=== PATIENT | female | born 1960 | race Asian ===

== ENCOUNTER 2023-05-06 06:05 | Inpatient (IN) | payer OTHER ==
[2023-05-06] VITALS: BP_SYST 100; PULSE 124; RESP 25; TEMP 97; O2SAT 100
[~2023-05-06] VITALS: Ht 152.4 cm; Wt 42.8 kg
[~2023-05-06 06:05] MED LIST: BENZ1TAB82 PO; COLL100 PO; CYCL25CA2 PO; FLUC200T PO; LIP10 PO; METO-442 PO; MULT-518 PO; MYFORTIC; PRED5TAB PO; RANI-673 PO; RISP0.5T66 PO; RISP1TAB44 PO; SULF1TAB47 PO; VALG450T PO; [UNRECOGNIZED DRUG - CODE] PO
[2023-05-06 06:07] VITALS: BP_SYST 58; PULSE 96; RESP 40; TEMP 93; TEMP 95; O2SAT 92
[2023-05-06] MEDS ORDERED: NS 1000 ML IV.SOLN IV ONE (06:15)
[2023-05-06 06:25] LABS: ABG O2 SAT% ESTIMATE 98.8 % (94.0-100.0); BLOOD GAS BASE EXCESS -22.9 mmol/L (-3.0-3.0); BLOOD GAS PO2 181.7 mmHg (75.0-100.0)
[2023-05-06] MEDS ORDERED: CEFEPIME 2 GM in D5W 100 ML IV ONE (06:30)
[2023-05-06 06:34] LABS: BLOOD GAS PCO2 12.6 mmHg (35.0-45.0)
[2023-05-06] MEDS ORDERED: CEFEPIME 2 GM/VIAL (MAXIPIME) ONE (06:37)
[2023-05-06 06:45] LABS: BASOPHILS % (AUTO) 0.1 % (0.0-2.0); HEMATOCRIT 34.4 % (36-48); HEMOGLOBIN 10.5 g/dL (12.0-16.0); LYMPHOCYTES % (AUTO) 3.8 % (20.5-51.5); MEAN CORPUSCULAR HEMOGLOBIN 26 pg (27-31); MEAN CORPUSCULAR HGB CONC 31 % (32-36); MEAN CORPUSCULAR VOLUME 86 fL (79.0-98.0); MONOCYTES # (AUTO) 1.6 K/uL (0.0-1.0); MONOCYTES % (AUTO) 6.4 % (1.7-9.3); NEUTROPHILS % (AUTO) 89.7 % (40.0-70.0); PLATELET COUNT (AUTO) 445 K/uL (130-430); RED BLOOD CELL COUNT(AUTO) 3.98 MIL/uL (4.2-6.2); RED CELL DISTRIBUTION WIDTH 16.3 % (9.0-15.0); WHITE BLOOD COUNT (AUTO) 25.7 K/uL (4.8-10.8)
[2023-05-06 06:58] LABS: BILIRUBIN,URINE NEGATIVE (NEGATIVE); BLOOD, URINE 1+ (NEGATIVE); CLARITY/URINE CLOUDY (CLEAR); COLOR,URINE YELLOW (YELLOW); GLUCOSE,URINE TRACE (NEGATIVE); KETONES,URINE 1+ (NEGATIVE); LEUKOCYTE ESTERASE ,URINE 3+ (NEGATIVE); NITRITE, URINE POSITIVE (NEGATIVE); PROTEIN URINE 2+ (NEGATIVE); UROBILINOGEN,URINE 0.2 (0.2-1.0)
[2023-05-06 07:01] LABS: BACTERIA,URINE MANY /HPF (None Seen); WBC,URINE >100 /HPF (0-3)
[2023-05-06 07:02] LABS: ALANINE AMINOTRANSFERASE 10 U/L (12-78); ALBUMIN 3.2 g/dL (3.4-4.8); ANION GAP 25 (5-15); ASPARTATE AMINOTRANSFERASE 17 U/L (10-37); BILIRUBIN,DIRECT 0.2 mg/dL (0.0-0.3); CHLORIDE 94 mmol/L (98-107); GFR AFRICAN AMERICAN 2 mL/min (>90); GLUCOSE 396 mg/dL (74-106); SODIUM SERUM 125 mmol/L (136-145); TOTAL BILIRUBIN 0.4 mg/dL (0.0-1.0); TOTAL PROTEIN, SERUM 8.6 g/dL (6.4-8.3)
[2023-05-06 07:14] LABS: INFLUENZA TYPE B NEGATIVE (NEGATIVE)
[2023-05-06 07:15] LABS: CARBON DIOXIDE 6 mmol/L (23-29); CREATININE 18.67 mg/dL (0.55-1.30); GFR NON AFRICAN-AMERICAN 2 mL/min (>90); POTASSIUM 6.5 mmol/L (3.5-5.1); UREA NITROGEN, BLOOD 190 mg/dL (8-21)
[2023-05-06] MEDS ORDERED: INSULIN REGULAR, HUMAN 100 UNITS in NS 99 ML IV ONE ×2 (07:15)
[2023-05-06 07:16] LABS: INFLUENZA TYPE A Positive (NEGATIVE)
[2023-05-06 07:44] LABS: INR 1.1 (0.8-1.2); PROTHROMBIN TIME 11.4 SECS (9.5-12.5)
[2023-05-06 08:01] LABS: ACETONE, SERUM NEGATIVE (NEGATIVE)
[2023-05-06] MEDS ORDERED: CALCIUM GLUCONATE 1 GM/10 ML VIAL IVP ONE (08:30)
[2023-05-06] MEDS ORDERED: NACL 0.9% 1,000 ML IV SCH (08:30)
[2023-05-06 08:48] LABS: CALCIUM 8.7 mg/dL (8.4-11.0)
[2023-05-06] MEDS ORDERED: HYDROcodone/ACETAMIN 10-325 MG TAB PO PRN (09:15)
[2023-05-06] MEDS ORDERED: ONDANSETRON HCL 4 MG/2 ML VIAL IVP PRN (09:15)
[2023-05-06] MEDS ORDERED: NS 500 ML IV SCH (09:15)
[2023-05-06] MEDS ORDERED: MORPHINE 2 MG/ML INJ. SYRINGE IVP PRN (09:15)
[2023-05-06] MEDS ORDERED: HYDROcodone/ACETAMIN 5-325 MG TAB (NORCO/ VICODIN) PO PRN (09:15)
[2023-05-06] MEDS ORDERED: INSULIN REGULAR, HUMAN 100 UNITS in NS 99 ML IV PRN ×6 (09:15→15:00)
[2023-05-06] MEDS ORDERED: ACETAMINOPHEN 325 MG TABLET PO PRN (09:15)
[2023-05-06] MEDS ORDERED: DEXTROSE 50% JECT 50 ML DISP.SYRIN IVP PRN (09:15)
[2023-05-06 09:51] LABS: POTASSIUM 6.3 mmol/L (3.5-5.1)
[2023-05-06] MEDS ORDERED: AMLO5TAB92 PO (09:52)
[2023-05-06] MEDS ORDERED: ALEN70TA27 PO (09:52)
[2023-05-06 09:53] LABS: CREATININE 16.43 mg/dL (0.55-1.30)
[2023-05-06 10:08] LABS: CALCIUM 8.8 mg/dL (8.4-11.0); PHOSPHORUS 7.3 mg/dL (2.7-4.5); POTASSIUM 5.4 mmol/L (3.5-5.1)
[2023-05-06 10:11] LABS: CREATININE 15.45 mg/dL (0.55-1.30)
[2023-05-06] MEDS ORDERED: LORazepam 2 MG/ML VIAL IM ONE (11:00)
[2023-05-06] MEDS ORDERED: CALCIUM GLUC 1 GM/100ML-NACL 100 ML IV ONE (11:45)
[2023-05-06] MEDS: D5NS 1,000 ML IV SCH ×2 (12:03→22:55)
[2023-05-06] MEDS ORDERED: CLIN-142 PO (12:38)
[2023-05-06] MEDS ORDERED: CYCL25CA PO (12:38)
[2023-05-06] MEDS ORDERED: MYCO180T3 PO (12:38)
[2023-05-06 12:55] LABS: POTASSIUM 5.3 mmol/L (3.5-5.1)
[2023-05-06 12:59] LABS: CREATININE 15.01 mg/dL (0.55-1.30)
[2023-05-06] MEDS ORDERED: DIPHENHYDRAMINE INJ 50 MG/ML VIAL IVP PRN (13:00)
[2023-05-06] MEDS ORDERED: CALCIUM CHLORIDE 1 GM/10 ML DISP.SYRIN (14 mEq Ca++/SYR) IVP ONE (13:15)
[2023-05-06] MEDS ORDERED: CALCIUM CHLORIDE 1 GM in NS 100 ML IV ONE (15:00)
[2023-05-06 17:45] LABS: CALCIUM 10.5 mg/dL (8.4-11.0); POTASSIUM 5.2 mmol/L (3.5-5.1)
[2023-05-06 17:56] LABS: CREATININE 14.71 mg/dL (0.55-1.30)
[2023-05-06] MEDS ORDERED: HEPARIN SODIUM,PORCINE 5,000 UNITS/ML VIAL ONE (18:51)
[2023-05-06] MEDS ORDERED: HEPARIN SODIUM,PORCINE 5,000 UNITS/ML VIAL SUBCUT ONE (19:00)
[2023-05-06 19:02] LABS: BLOOD GAS PH 7.157 (7.350-7.450)
[2023-05-06 19:03] LABS: BLOOD GAS HCO3 4.4 mmol/L (21.0-27.0); BLOOD GAS PCO2 12.7 mmHg (35.0-45.0); BLOOD GAS PO2 162.8 mmHg (75.0-100.0)
[2023-05-06 19:04] LABS: ABG O2 SAT% ESTIMATE 98.7 % (94.0-100.0); ALLEN'S TEST POSITIVE (P); BLOOD GAS BASE EXCESS -21.7 mmol/L (-3.0-3.0)
[2023-05-06] MEDS ORDERED: NOREPINEPHRINE 4 MG/4 ML VIAL IV ONE (23:55)
[2023-05-07] VITALS (25 sets, daily range): BP systolic 91–153; PULSE 86–126; RESP 11–23; TEMP 97–98.1; O2SAT 97–100
[2023-05-07] MEDS ORDERED: NOREPINEPHRINE BITARTRATE 16 MG in D5W 234 ML IV PRN ×2
[2023-05-07 01:43] LABS: CALCIUM 8.7 mg/dL (8.4-11.0); CREATININE 6.17 mg/dL (0.55-1.30); POTASSIUM 3.2 mmol/L (3.5-5.1)
[2023-05-07 05:25] LABS: EOSINOPHILS % (AUTO) 0.1 % (0.0-4.0); HEMATOCRIT 22.3 % (36-48); LYMPHOCYTES # (AUTO) 0.6 K/uL (1.0-5.5); LYMPHOCYTES % (AUTO) 3.6 % (20.5-51.5); MEAN CORPUSCULAR HEMOGLOBIN 26 pg (27-31); MEAN CORPUSCULAR HGB CONC 32 % (32-36); MEAN CORPUSCULAR VOLUME 81 fL (79.0-98.0); MONOCYTES # (AUTO) 1.5 K/uL (0.0-1.0); NEUTROPHILS # (AUTO) 14.7 K/uL (1.8-7.7); NEUTROPHILS % (AUTO) 87.3 % (40.0-70.0); PLATELET COUNT (AUTO) 282 K/uL (130-430); RED BLOOD CELL COUNT(AUTO) 2.75 MIL/uL (4.2-6.2); RED CELL DISTRIBUTION WIDTH 15.6 % (9.0-15.0); WHITE BLOOD COUNT (AUTO) 16.8 K/uL (4.8-10.8)
[2023-05-07 05:28] LABS: HEMOGLOBIN 7.2 g/dL (12.0-16.0)
[2023-05-07 05:40] LABS: CALCIUM 8.6 mg/dL (8.4-11.0); CREATININE 6.48 mg/dL (0.55-1.30)
[2023-05-07] MEDS: D5NS 1,000 ML IV SCH ×2 (08:55→17:53)
[2023-05-07] MEDS ORDERED: D5W IV SCH (09:00)
[2023-05-07] MEDS ORDERED: CEFEPIME IV SCH (09:00)
[2023-05-07] MEDS ORDERED: KCL 20 mEq in 100 mL (PREMIX) 100 ML IV ONE ×2 (09:30→12:00)
[2023-05-07 09:58] LABS: ALBUMIN 1.9 g/dL (3.4-4.8); CALCIUM 8.9 mg/dL (8.4-11.0); CREATININE 6.58 mg/dL (0.55-1.30); POTASSIUM 3.2 mmol/L (3.5-5.1); TOTAL BILIRUBIN 0.4 mg/dL (0.0-1.0); TOTAL PROTEIN, SERUM 5.5 g/dL (6.4-8.3)
[2023-05-07] MEDS: CEFEPIME 0.5 GM in D5W 50 ML IV SCH (13:34)
[2023-05-07] MEDS ORDERED: HYDROcodone/ACETAMIN 5-325 MG TAB (NORCO/ VICODIN) PO PRN (14:00)
[2023-05-07 15:35] LABS: CALCIUM 8.4 mg/dL (8.4-11.0); CREATININE 3.94 mg/dL (0.55-1.30); POTASSIUM 3.8 mmol/L (3.5-5.1)
[2023-05-07] MEDS ORDERED: HEPARIN SODIUM,PORCINE 5,000 UNITS/ML VIAL MC ONE (15:45)
[2023-05-07 19:05] LABS: ABG O2 SAT% ESTIMATE 99.3 % (94.0-100.0); BLOOD GAS BASE EXCESS 6.9 mmol/L (-3.0-3.0); BLOOD GAS HCO3 27.1 mmol/L (21.0-27.0); BLOOD GAS PCO2 26.8 mmHg (35.0-45.0); BLOOD GAS PH 7.622 (7.350-7.450); BLOOD GAS PO2 156.6 mmHg (75.0-100.0)
[2023-05-07 19:46] LABS: MEAN CORPUSCULAR HEMOGLOBIN 27 pg (27-31); MEAN CORPUSCULAR HGB CONC 32 % (32-36); MEAN CORPUSCULAR VOLUME 82 fL (79.0-98.0); PLATELET COUNT (AUTO) 232 K/uL (130-430); RED BLOOD CELL COUNT(AUTO) 2.54 MIL/uL (4.2-6.2); RED CELL DISTRIBUTION WIDTH 15.6 % (9.0-15.0); WHITE BLOOD COUNT (AUTO) 20.1 K/uL (4.8-10.8)
[2023-05-07 20:05] LABS: HEMATOCRIT 20.8 % (36-48); HEMOGLOBIN 6.7 g/dL (12.0-16.0)
[2023-05-07] MEDS ORDERED: FUROSEMIDE 20 MG/2 ML VIAL IVP ONE (21:45)
[2023-05-07 21:59] LABS: BAND % (MANUAL) 7 % (0-6); BASOPHILS % (MANUAL) 0 % (0-2); EOSINOPHILS % (MANUAL) 0 % (0-7); LYMPHOCYTES % (MANUAL) 5 % (20-46); MONOCYTES % (MANUAL) 3 % (0-11); PLATELET ESTIMATE ADEQUATE (ADEQUATE)
[2023-05-07 22:00] LABS: ANISOCYTOSIS 1+; OVALOCYTES MODERATE
[2023-05-07] MEDS ORDERED: *TPN PER PHARMACY XX SCH (22:30)
[2023-05-08] VITALS (24 sets, daily range): BP systolic 96–167; PULSE 68–104; RESP 11–25; TEMP 97.6–98.3; O2SAT 98–100
[2023-05-08] MEDS ORDERED: PANTOPRAZOLE SODIUM 40 MG/VIAL (PROTONIX) ONE (00:07)
[2023-05-08] MEDS: PANTOPRAZOLE SODIUM 40 MG/VIAL (PROTONIX) IVP SCH ×3 (00:08→21:42)
[2023-05-08] MEDS: OSELTAMIVIR PHOSPHATE 30 MG CAPSULE PO SCH ×3 (00:30→21:43)
[2023-05-08] MEDS: D5NS 1,000 ML IV SCH ×2 (04:19→18:24)
[2023-05-08 05:40] LABS: EOSINOPHILS % (AUTO) 0.2 % (0.0-4.0); HEMATOCRIT 26.6 % (36-48); HEMOGLOBIN 8.7 g/dL (12.0-16.0); LYMPHOCYTES % (AUTO) 6.7 % (20.5-51.5); MEAN CORPUSCULAR HEMOGLOBIN 28 pg (27-31); MEAN CORPUSCULAR HGB CONC 33 % (32-36); MEAN CORPUSCULAR VOLUME 85 fL (79.0-98.0); MONOCYTES # (AUTO) 1.5 K/uL (0.0-1.0); MONOCYTES % (AUTO) 9.8 % (1.7-9.3); NEUTROPHILS # (AUTO) 12.7 K/uL (1.8-7.7); NEUTROPHILS % (AUTO) 83.3 % (40.0-70.0); PLATELET COUNT (AUTO) 199 K/uL (130-430); RED BLOOD CELL COUNT(AUTO) 3.12 MIL/uL (4.2-6.2); RED CELL DISTRIBUTION WIDTH 15.9 % (9.0-15.0); WHITE BLOOD COUNT (AUTO) 15.2 K/uL (4.8-10.8)
[2023-05-08 05:48] LABS: CALCIUM 8.3 mg/dL (8.4-11.0); CREATININE 2.88 mg/dL (0.55-1.30); POTASSIUM 3.3 mmol/L (3.5-5.1)
[2023-05-08] MEDS ORDERED: KCL 40 mEq in 100 mL (PREMIX) 100 ML IV ONE (09:00)
[2023-05-08] MEDS: CEFEPIME 0.5 GM in D5W 50 ML IV SCH (11:53)
[2023-05-08] MEDS ORDERED: MYCOPHENOLATE SODIUM PO SCH (18:45)
[2023-05-08] MEDS ORDERED: MULTIVITAMINS PO SCH (18:45)
[2023-05-08 18:46] LABS: HEMATOCRIT 32.3 % (36-48); HEMOGLOBIN 10.2 g/dL (12.0-16.0)
[2023-05-08] MEDS ORDERED: MULTIVITAMINS TAB 1 TABLET PO ONE (19:00)
[2023-05-08] MEDS ORDERED: predniSONE 5 MG TABLET PO ONE (19:00)
[2023-05-08] MEDS ORDERED: POTASSIUM ACETATE IV SCH ×7 (21:00)
[2023-05-08] MEDS ORDERED: SODIUM ACETATE IV SCH ×7 (21:00)
[2023-05-08] MEDS: MYCOPHENOLATE 180 MG PO SCH (21:00)
[2023-05-08] MEDS ORDERED: MVI IV SCH ×7 (21:00)
[2023-05-08] MEDS ORDERED: TPN CENTRAL IV SCH ×7 (21:00)
[2023-05-08] MEDS ORDERED: [UNRECOGNIZED DRUG - OTHER] IV SCH ×7 (21:00)
[2023-05-09] VITALS (18 sets, daily range): BP systolic 119–178; PULSE 71–106; RESP 10–25; TEMP 97.8–98.9; O2SAT 96–100
[2023-05-09 05:04] LABS: BASOPHILS % (AUTO) 0.1 % (0.0-2.0); EOSINOPHILS # (AUTO) 0.4 K/uL (0.0-0.4); EOSINOPHILS % (AUTO) 3.5 % (0.0-4.0); HEMATOCRIT 27.6 % (36-48); HEMOGLOBIN 8.8 g/dL (12.0-16.0); LYMPHOCYTES # (AUTO) 0.8 K/uL (1.0-5.5); LYMPHOCYTES % (AUTO) 7.7 % (20.5-51.5); MEAN CORPUSCULAR HEMOGLOBIN 28 pg (27-31); MEAN CORPUSCULAR HGB CONC 32 % (32-36); MEAN CORPUSCULAR VOLUME 88 fL (79.0-98.0); MONOCYTES # (AUTO) 1.1 K/uL (0.0-1.0); MONOCYTES % (AUTO) 10.4 % (1.7-9.3); NEUTROPHILS # (AUTO) 8.4 K/uL (1.8-7.7); NEUTROPHILS % (AUTO) 78.3 % (40.0-70.0); PLATELET COUNT (AUTO) 167 K/uL (130-430); RED BLOOD CELL COUNT(AUTO) 3.13 MIL/uL (4.2-6.2); RED CELL DISTRIBUTION WIDTH 15.6 % (9.0-15.0); WHITE BLOOD COUNT (AUTO) 10.7 K/uL (4.8-10.8)
[2023-05-09 05:27] LABS: ALBUMIN 1.6 g/dL (3.4-4.8); CALCIUM 8.5 mg/dL (8.4-11.0); CREATININE 3.68 mg/dL (0.55-1.30); PHOSPHORUS 3.1 mg/dL (2.7-4.5); POTASSIUM 3.4 mmol/L (3.5-5.1); TOTAL BILIRUBIN 0.3 mg/dL (0.0-1.0)
[2023-05-09] MEDS: MULTIVITAMINS TAB 1 TABLET PO SCH (08:11)
[2023-05-09] MEDS: predniSONE 5 MG TABLET PO SCH (08:11)
[2023-05-09] MEDS: PANTOPRAZOLE SODIUM 40 MG/VIAL (PROTONIX) IVP SCH ×2 (08:11→20:32)
[2023-05-09] MEDS: OSELTAMIVIR PHOSPHATE 30 MG CAPSULE PO SCH ×2 (08:11→20:33)
[2023-05-09] MEDS: MYCOPHENOLATE 180 MG PO SCH ×2 (09:00→20:34)
[2023-05-09] MEDS: D5NS 1,000 ML IV SCH ×3 (10:00→23:56)
[2023-05-09] MEDS: CEFEPIME 0.5 GM in D5W 50 ML IV SCH (12:54)
[2023-05-09] MEDS: INSULIN LISPRO SLIDING SCALE 100 UNITS/ML, 3 ML VIAL (humaLOG) SUBCUT PRN ×2 (19:03→23:58)
[2023-05-09] MEDS: NYSTATIN 15 GM TOPICAL POWDER TP SCH (20:34)
[2023-05-09] MEDS ORDERED: TPN CENTRAL IV SCH ×9 (21:00)
[2023-05-09] MEDS ORDERED: K PHOS IV SCH ×9 (21:00)
[2023-05-09] MEDS ORDERED: [UNRECOGNIZED DRUG - OTHER] IV SCH ×9 (21:00)
[2023-05-09] MEDS ORDERED: SODIUM ACETATE IV SCH ×9 (21:00)
[2023-05-09] MEDS ORDERED: D5NS 1,000 ML IV SCH (21:00)
[2023-05-09] MEDS ORDERED: POTASSIUM ACETATE IV SCH ×9 (21:00)
[2023-05-10] VITALS: BP_SYST 123; PULSE 62; RESP 18; TEMP 98.7; O2SAT 99
[2023-05-10] MEDS: INSULIN LISPRO SLIDING SCALE 100 UNITS/ML, 3 ML VIAL (humaLOG) SUBCUT PRN ×3 (05:33→19:12)
[2023-05-10 05:49] LABS: CALCIUM 8.3 mg/dL (8.4-11.0); POTASSIUM 3.5 mmol/L (3.5-5.1)
[2023-05-10 05:50] LABS: ALBUMIN 1.7 g/dL (3.4-4.8); BASOPHILS % (AUTO) 0.1 % (0.0-2.0); CREATININE 3.79 mg/dL (0.55-1.30); EOSINOPHILS # (AUTO) 0.3 K/uL (0.0-0.4); EOSINOPHILS % (AUTO) 3.3 % (0.0-4.0); HEMATOCRIT 25.9 % (36-48); HEMOGLOBIN 8.3 g/dL (12.0-16.0); LYMPHOCYTES % (AUTO) 10.7 % (20.5-51.5); MEAN CORPUSCULAR HEMOGLOBIN 28 pg (27-31); MEAN CORPUSCULAR HGB CONC 32 % (32-36); MEAN CORPUSCULAR VOLUME 88 fL (79.0-98.0); MONOCYTES # (AUTO) 1.2 K/uL (0.0-1.0); MONOCYTES % (AUTO) 13.1 % (1.7-9.3); NEUTROPHILS # (AUTO) 6.9 K/uL (1.8-7.7); NEUTROPHILS % (AUTO) 72.8 % (40.0-70.0); PHOSPHORUS 1.6 mg/dL (2.7-4.5); PLATELET COUNT (AUTO) 133 K/uL (130-430); RED BLOOD CELL COUNT(AUTO) 2.95 MIL/uL (4.2-6.2); RED CELL DISTRIBUTION WIDTH 15.8 % (9.0-15.0); TOTAL BILIRUBIN 0.3 mg/dL (0.0-1.0); WHITE BLOOD COUNT (AUTO) 9.5 K/uL (4.8-10.8)
[2023-05-10 07:40] VITALS: BP_SYST 141; PULSE 84; RESP 16; TEMP 98.4; O2SAT 100
[2023-05-10 08:20] VITALS: O2SAT 100
[2023-05-10] MEDS: MYCOPHENOLATE 180 MG PO SCH ×2 (09:00→21:00)
[2023-05-10] MEDS: PANTOPRAZOLE SODIUM 40 MG/VIAL (PROTONIX) IVP SCH ×2 (09:03→22:28)
[2023-05-10] MEDS: MENTHOL/ZINC OXIDE 113 GM OINT. TP PRN (09:04)
[2023-05-10] MEDS: MULTIVITAMINS TAB 1 TABLET PO SCH (09:05)
[2023-05-10] MEDS: OSELTAMIVIR PHOSPHATE 30 MG CAPSULE PO SCH ×2 (09:06→22:29)
[2023-05-10] MEDS: predniSONE 5 MG TABLET PO SCH (09:06)
[2023-05-10] MEDS: NYSTATIN 15 GM TOPICAL POWDER TP SCH ×2 (09:12→22:27)
[2023-05-10] MEDS ORDERED: DEXTROSE 50%-WATER 50 ML DISP.SYRIN IVP PRN (10:30)
[2023-05-10 12:20] VITALS: BP_SYST 148; PULSE 98; RESP 18; TEMP 97.7; O2SAT 100
[2023-05-10] MEDS: metroNIDAZOLE 500 mg/NS 100 ML IV SCH ×2 (14:10→14:41)
[2023-05-10] MEDS: CEFEPIME 0.5 GM in D5W 50 ML IV SCH (14:39)
[2023-05-10] MEDS ORDERED: CIPROFLOXACIN HCL 500 MG TABLET PO ONE (15:15)
[2023-05-10 16:36] VITALS: BP_SYST 160; PULSE 73; RESP 17; TEMP 98.6; O2SAT 97
[2023-05-10 20:00] VITALS: BP_SYST 144; PULSE 77; RESP 18; TEMP 97.9; O2SAT 95
[2023-05-10] MEDS: CIPROFLOXACIN HCL 500 MG TABLET PO SCH (22:28)
[2023-05-11] VITALS: BP_SYST 138; PULSE 72; RESP 18; TEMP 97.8; O2SAT 97
[2023-05-11 08:00] VITALS: BP_SYST 131; PULSE 84; RESP 17; TEMP 98.5; O2SAT 100
[2023-05-11] MEDS: MYCOPHENOLATE 180 MG PO SCH ×2 (09:00→22:03)
[2023-05-11] MEDS: PANTOPRAZOLE SODIUM 40 MG/VIAL (PROTONIX) IVP SCH ×2 (09:59→22:03)
[2023-05-11] MEDS: MULTIVITAMINS TAB 1 TABLET PO SCH (10:00)
[2023-05-11] MEDS: OSELTAMIVIR PHOSPHATE 30 MG CAPSULE PO SCH ×2 (10:00→22:17)
[2023-05-11] MEDS: predniSONE 5 MG TABLET PO SCH (10:00)
[2023-05-11] MEDS: CIPROFLOXACIN HCL 500 MG TABLET PO SCH (10:00)
[2023-05-11] MEDS: NYSTATIN 15 GM TOPICAL POWDER TP SCH ×2 (10:01→22:03)
[2023-05-11 12:32] VITALS: BP_SYST 134; PULSE 78; RESP 18; TEMP 98.2; O2SAT 97
[2023-05-11] MEDS ORDERED: MYCOPHENOLATE 180 MG PO ONE (14:00)
[2023-05-11 16:05] VITALS: BP_SYST 133; PULSE 80; RESP 18; TEMP 98.4; O2SAT 99
[2023-05-11 16:15] LABS: BASOPHILS % (AUTO) 0.1 % (0.0-2.0); EOSINOPHILS # (AUTO) 0.1 K/uL (0.0-0.4); EOSINOPHILS % (AUTO) 0.6 % (0.0-4.0); HEMATOCRIT 27.7 % (36-48); HEMOGLOBIN 8.7 g/dL (12.0-16.0); LYMPHOCYTES # (AUTO) 0.5 K/uL (1.0-5.5); LYMPHOCYTES % (AUTO) 4.4 % (20.5-51.5); MEAN CORPUSCULAR HEMOGLOBIN 28 pg (27-31); MEAN CORPUSCULAR HGB CONC 31 % (32-36); MEAN CORPUSCULAR VOLUME 89 fL (79.0-98.0); MONOCYTES # (AUTO) 0.8 K/uL (0.0-1.0); MONOCYTES % (AUTO) 7.1 % (1.7-9.3); NEUTROPHILS # (AUTO) 10.1 K/uL (1.8-7.7); NEUTROPHILS % (AUTO) 87.8 % (40.0-70.0); PLATELET COUNT (AUTO) 151 K/uL (130-430); RED BLOOD CELL COUNT(AUTO) 3.12 MIL/uL (4.2-6.2); RED CELL DISTRIBUTION WIDTH 15.7 % (9.0-15.0); WHITE BLOOD COUNT (AUTO) 11.5 K/uL (4.8-10.8)
[2023-05-11 16:36] LABS: CALCIUM 8.5 mg/dL (8.4-11.0); CREATININE 4.21 mg/dL (0.55-1.30); POTASSIUM 4.1 mmol/L (3.5-5.1); TOTAL BILIRUBIN 0.3 mg/dL (0.0-1.0); TOTAL PROTEIN, SERUM 5.7 g/dL (6.4-8.3)
[2023-05-11] MEDS ORDERED: levoFLOXacin 500 MG TABLET PO ONE (17:15)
[2023-05-11 20:00] VITALS: BP_SYST 138; PULSE 89; RESP 18; TEMP 99; O2SAT 99
[2023-05-11] MEDS: metroNIDAZOLE 500 MG TABLET PO SCH (22:02)
[2023-05-12] VITALS (8 sets, daily range): BP systolic 125–140; PULSE 84–97; RESP 17–20; TEMP 96.1–99.6; O2SAT 90–100
[2023-05-12] MEDS: metroNIDAZOLE 500 MG TABLET PO SCH ×3 (05:59→21:15)
[2023-05-12 07:54] LABS: BASOPHILS % (AUTO) 0.3 % (0.0-2.0); EOSINOPHILS # (AUTO) 0.3 K/uL (0.0-0.4); EOSINOPHILS % (AUTO) 2.8 % (0.0-4.0); HEMATOCRIT 27.2 % (36-48); HEMOGLOBIN 8.7 g/dL (12.0-16.0); LYMPHOCYTES # (AUTO) 1.1 K/uL (1.0-5.5); MEAN CORPUSCULAR HEMOGLOBIN 28 pg (27-31); MEAN CORPUSCULAR HGB CONC 32 % (32-36); MEAN CORPUSCULAR VOLUME 89 fL (79.0-98.0); MONOCYTES # (AUTO) 1.4 K/uL (0.0-1.0); MONOCYTES % (AUTO) 15.8 % (1.7-9.3); NEUTROPHILS # (AUTO) 6.3 K/uL (1.8-7.7); NEUTROPHILS % (AUTO) 69.1 % (40.0-70.0); PLATELET COUNT (AUTO) 164 K/uL (130-430); RED BLOOD CELL COUNT(AUTO) 3.06 MIL/uL (4.2-6.2); RED CELL DISTRIBUTION WIDTH 15.9 % (9.0-15.0); WHITE BLOOD COUNT (AUTO) 9.1 K/uL (4.8-10.8)
[2023-05-12 07:59] LABS: INR 1.2 (0.8-1.2); PROTHROMBIN TIME 12.3 SECS (9.5-12.5)
[2023-05-12 08:04] LABS: ALBUMIN 1.9 g/dL (3.4-4.8); CALCIUM 8.7 mg/dL (8.4-11.0); CREATININE 4.3 mg/dL (0.55-1.30); POTASSIUM 3.7 mmol/L (3.5-5.1); TOTAL BILIRUBIN 0.3 mg/dL (0.0-1.0); TOTAL PROTEIN, SERUM 5.5 g/dL (6.4-8.3)
[2023-05-12] MEDS ORDERED: SIMETHICONE 40 MG/0.6 ML ML ONE (08:31)
[2023-05-12] MEDS ORDERED: levoFLOXacin 500 MG TABLET PO SCH (10:00)
[2023-05-12] MEDS: MEPERIDINE 100 MG INJ. 100 MG/ML VIAL ONE ×3 (10:07→10:15)
[2023-05-12] MEDS: MIDAZOLAM HCL 5 MG/5 ML VIAL ONE ×3 (10:07→10:15)
[2023-05-12] MEDS: PANTOPRAZOLE SODIUM 40 MG/VIAL (PROTONIX) IVP SCH ×2 (11:22→21:15)
[2023-05-12] MEDS: MULTIVITAMINS TAB 1 TABLET PO SCH (11:22)
[2023-05-12] MEDS: NYSTATIN 15 GM TOPICAL POWDER TP SCH ×2 (11:22→21:19)
[2023-05-12] MEDS: OSELTAMIVIR PHOSPHATE 30 MG CAPSULE PO SCH ×2 (11:23→21:19)
[2023-05-12] MEDS: predniSONE 5 MG TABLET PO SCH (11:23)
[2023-05-12] MEDS: MYCOPHENOLATE 180 MG PO SCH ×2 (11:24→21:17)
[2023-05-13 01:21] VITALS: BP_SYST 138; PULSE 81; RESP 16; TEMP 98.7; O2SAT 69
[2023-05-13] MEDS: metroNIDAZOLE 500 MG TABLET PO SCH ×3 (05:59→21:56)
[2023-05-13 07:07] LABS: CALCIUM 8.6 mg/dL (8.4-11.0); CREATININE 4.56 mg/dL (0.55-1.30); POTASSIUM 3.9 mmol/L (3.5-5.1); TOTAL BILIRUBIN 0.4 mg/dL (0.0-1.0); TOTAL PROTEIN, SERUM 5.6 g/dL (6.4-8.3)
[2023-05-13 07:58] LABS: BASOPHILS % (AUTO) 0.6 % (0.0-2.0); EOSINOPHILS # (AUTO) 0.2 K/uL (0.0-0.4); EOSINOPHILS % (AUTO) 1.8 % (0.0-4.0); HEMATOCRIT 27.1 % (36-48); HEMOGLOBIN 8.7 g/dL (12.0-16.0); LYMPHOCYTES % (AUTO) 11.9 % (20.5-51.5); MEAN CORPUSCULAR HEMOGLOBIN 29 pg (27-31); MEAN CORPUSCULAR HGB CONC 32 % (32-36); MEAN CORPUSCULAR VOLUME 89 fL (79.0-98.0); MONOCYTES # (AUTO) 1.1 K/uL (0.0-1.0); NEUTROPHILS # (AUTO) 6.3 K/uL (1.8-7.7); NEUTROPHILS % (AUTO) 72.7 % (40.0-70.0); PLATELET COUNT (AUTO) 176 K/uL (130-430); RED BLOOD CELL COUNT(AUTO) 3.04 MIL/uL (4.2-6.2); WHITE BLOOD COUNT (AUTO) 8.7 K/uL (4.8-10.8)
[2023-05-13] MEDS: MULTIVITAMINS TAB 1 TABLET PO SCH (09:00)
[2023-05-13] MEDS: MYCOPHENOLATE 180 MG PO SCH ×2 (09:00→21:57)
[2023-05-13] MEDS: predniSONE 5 MG TABLET PO SCH (09:00)
[2023-05-13] MEDS: PANTOPRAZOLE SODIUM 40 MG/VIAL (PROTONIX) IVP SCH ×2 (09:29→21:56)
[2023-05-13] MEDS: NYSTATIN 15 GM TOPICAL POWDER TP SCH ×2 (09:29→21:58)
[2023-05-13] MEDS: levoFLOXacin 250 MG TABLET PO SCH (10:00)
[2023-05-13 11:30] VITALS: BP_SYST 135; PULSE 91; RESP 17; TEMP 98.8; O2SAT 100
[2023-05-13 13:30] VITALS: BP_SYST 144; PULSE 93; RESP 20; TEMP 98.7; O2SAT 99
[2023-05-13 16:46] VITALS: BP_SYST 135; PULSE 85; RESP 17; TEMP 98.1; O2SAT 98
[2023-05-13 20:30] VITALS: BP_SYST 136; PULSE 89; RESP 18; TEMP 97.5; O2SAT 96
[2023-05-14] VITALS: O2SAT 96
[2023-05-14 01:00] VITALS: BP_SYST 138; PULSE 93; RESP 18; TEMP 98.2; O2SAT 96
[2023-05-14 06:38] LABS: BASOPHILS % (AUTO) 0.7 % (0.0-2.0); EOSINOPHILS # (AUTO) 0.5 K/uL (0.0-0.4); EOSINOPHILS % (AUTO) 6.8 % (0.0-4.0); HEMOGLOBIN 9.6 g/dL (12.0-16.0); LYMPHOCYTES # (AUTO) 1.1 K/uL (1.0-5.5); LYMPHOCYTES % (AUTO) 15.1 % (20.5-51.5); MEAN CORPUSCULAR HEMOGLOBIN 28 pg (27-31); MEAN CORPUSCULAR HGB CONC 31 % (32-36); MEAN CORPUSCULAR VOLUME 90 fL (79.0-98.0); MONOCYTES # (AUTO) 0.9 K/uL (0.0-1.0); MONOCYTES % (AUTO) 12.9 % (1.7-9.3); NEUTROPHILS # (AUTO) 4.7 K/uL (1.8-7.7); NEUTROPHILS % (AUTO) 64.5 % (40.0-70.0); PLATELET COUNT (AUTO) 211 K/uL (130-430); RED BLOOD CELL COUNT(AUTO) 3.45 MIL/uL (4.2-6.2); RED CELL DISTRIBUTION WIDTH 15.8 % (9.0-15.0); WHITE BLOOD COUNT (AUTO) 7.2 K/uL (4.8-10.8)
[2023-05-14] MEDS: metroNIDAZOLE 500 MG TABLET PO SCH ×3 (06:57→20:58)
[2023-05-14 07:02] LABS: ERYTHROCYTE SEDIMENTATION RATE 75 MM/HR (0-20)
[2023-05-14 07:30] VITALS: BP_SYST 140; PULSE 84; RESP 20; TEMP 98.6; O2SAT 100
[2023-05-14 08:00] VITALS: O2SAT 96
[2023-05-14 08:01] LABS: ALBUMIN 2.2 g/dL (3.4-4.8); CALCIUM 9.3 mg/dL (8.4-11.0); CREATININE 4.52 mg/dL (0.55-1.30); PHOSPHORUS 3.4 mg/dL (2.7-4.5); TOTAL BILIRUBIN 0.4 mg/dL (0.0-1.0)
[2023-05-14] MEDS: MYCOPHENOLATE 180 MG PO SCH ×2 (09:00→20:54)
[2023-05-14] MEDS: predniSONE 5 MG TABLET PO SCH (09:47)
[2023-05-14] MEDS: PANTOPRAZOLE SODIUM 40 MG/VIAL (PROTONIX) IVP SCH ×2 (09:47→21:02)
[2023-05-14] MEDS: MULTIVITAMINS TAB 1 TABLET PO SCH (09:47)
[2023-05-14] MEDS: NYSTATIN 15 GM TOPICAL POWDER TP SCH ×2 (09:53→20:57)
[2023-05-14 11:50] VITALS: BP_SYST 149; PULSE 98; RESP 18; TEMP 98.8; O2SAT 98
[2023-05-14 14:07] LABS: HEPATITIS A AB, IgM Negative (Negative); HEPATITIS B CORE AB, IgM Negative (Negative); HEPATITIS B SURFACE AG Negative (Negative); HEPATITIS C VIRUS AB Non Reactive (Non Reactive)
[2023-05-14 17:12] VITALS: BP_SYST 126; PULSE 98; RESP 17; TEMP 98.1; O2SAT 99
[2023-05-15] VITALS: BP_SYST 142; PULSE 94; RESP 20; TEMP 97.5; O2SAT 99
[2023-05-15 03:17] VITALS: O2SAT 97
[2023-05-15] MEDS: metroNIDAZOLE 500 MG TABLET PO SCH ×3 (05:28→22:57)
[2023-05-15 06:35] LABS: BASOPHILS % (AUTO) 0.7 % (0.0-2.0); EOSINOPHILS # (AUTO) 0.2 K/uL (0.0-0.4); EOSINOPHILS % (AUTO) 3.4 % (0.0-4.0); HEMATOCRIT 29.8 % (36-48); HEMOGLOBIN 9.3 g/dL (12.0-16.0); LYMPHOCYTES # (AUTO) 1.2 K/uL (1.0-5.5); LYMPHOCYTES % (AUTO) 20.7 % (20.5-51.5); MEAN CORPUSCULAR HEMOGLOBIN 28 pg (27-31); MEAN CORPUSCULAR HGB CONC 31 % (32-36); MEAN CORPUSCULAR VOLUME 89 fL (79.0-98.0); MONOCYTES # (AUTO) 0.7 K/uL (0.0-1.0); MONOCYTES % (AUTO) 11.8 % (1.7-9.3); NEUTROPHILS # (AUTO) 3.6 K/uL (1.8-7.7); NEUTROPHILS % (AUTO) 63.4 % (40.0-70.0); PLATELET COUNT (AUTO) 198 K/uL (130-430); RED BLOOD CELL COUNT(AUTO) 3.33 MIL/uL (4.2-6.2); RED CELL DISTRIBUTION WIDTH 15.7 % (9.0-15.0); WHITE BLOOD COUNT (AUTO) 5.6 K/uL (4.8-10.8)
[2023-05-15 07:13] LABS: CALCIUM 9.4 mg/dL (8.4-11.0); CREATININE 4.27 mg/dL (0.55-1.30); PHOSPHORUS 4.2 mg/dL (2.7-4.5); POTASSIUM 3.8 mmol/L (3.5-5.1)
[2023-05-15 08:00] VITALS: O2SAT 95
[2023-05-15] MEDS: PANTOPRAZOLE SODIUM 40 MG/VIAL (PROTONIX) IVP SCH ×2 (10:49→23:37)
[2023-05-15] MEDS: levoFLOXacin 250 MG TABLET PO SCH (10:50)
[2023-05-15] MEDS: MYCOPHENOLATE 180 MG PO SCH ×2 (10:50→22:57)
[2023-05-15] MEDS: predniSONE 5 MG TABLET PO SCH (10:50)
[2023-05-15] MEDS: MULTIVITAMINS TAB 1 TABLET PO SCH (10:50)
[2023-05-15] MEDS: NYSTATIN 15 GM TOPICAL POWDER TP SCH ×2 (10:54→22:59)
[2023-05-15 12:00] VITALS: BP_SYST 133; PULSE 98; RESP 20; TEMP 97.4; O2SAT 100
[2023-05-15 15:55] VITALS: BP_SYST 138; PULSE 92; RESP 18; TEMP 98; O2SAT 100
[2023-05-15 20:00] VITALS: BP_SYST 141; PULSE 88; RESP 18; TEMP 98.4; O2SAT 98
[2023-05-16 00:32] VITALS: BP_SYST 137; PULSE 96; RESP 18; TEMP 97.5; O2SAT 100
[2023-05-16 01:13] VITALS: O2SAT 98
[2023-05-16 06:08] LABS: BILIRUBIN,URINE NEGATIVE (NEGATIVE); BLOOD, URINE 1+ (NEGATIVE); CLARITY/URINE CLEAR (CLEAR); COLOR,URINE YELLOW (YELLOW); GLUCOSE,URINE TRACE (NEGATIVE); KETONES,URINE NEGATIVE (NEGATIVE); LEUKOCYTE ESTERASE ,URINE 3+ (NEGATIVE); NITRITE, URINE NEGATIVE (NEGATIVE); PROTEIN URINE 2+ (NEGATIVE); UROBILINOGEN,URINE 0.2 (0.2-1.0)
[2023-05-16] MEDS: metroNIDAZOLE 500 MG TABLET PO SCH (06:10)
[2023-05-16] MEDS: MENTHOL/ZINC OXIDE 113 GM OINT. TP PRN (06:11)
[2023-05-16 06:31] LABS: BASOPHILS % (AUTO) 0.6 % (0.0-2.0); EOSINOPHILS # (AUTO) 0.1 K/uL (0.0-0.4); HEMATOCRIT 28.7 % (36-48); LYMPHOCYTES # (AUTO) 1.3 K/uL (1.0-5.5); LYMPHOCYTES % (AUTO) 20.7 % (20.5-51.5); MEAN CORPUSCULAR HEMOGLOBIN 28 pg (27-31); MEAN CORPUSCULAR HGB CONC 31 % (32-36); MEAN CORPUSCULAR VOLUME 89 fL (79.0-98.0); MONOCYTES # (AUTO) 0.7 K/uL (0.0-1.0); MONOCYTES % (AUTO) 10.6 % (1.7-9.3); NEUTROPHILS # (AUTO) 4.2 K/uL (1.8-7.7); NEUTROPHILS % (AUTO) 66.1 % (40.0-70.0); PLATELET COUNT (AUTO) 212 K/uL (130-430); RED BLOOD CELL COUNT(AUTO) 3.24 MIL/uL (4.2-6.2); RED CELL DISTRIBUTION WIDTH 16.1 % (9.0-15.0); WHITE BLOOD COUNT (AUTO) 6.4 K/uL (4.8-10.8)
[2023-05-16 06:47] LABS: BACTERIA,URINE FEW /HPF (None Seen); RBC,URINE 0-3 /HPF (0-3)
[2023-05-16 06:48] LABS: CALCIUM OXALATE CRYSTALS,UR None Seen /HPF (None Seen); CALCIUM PHOSPHATE CRYSTALS,UR None Seen /HPF (None Seen); COARSE GRANULAR CASTS,URINE None Seen /LPF (None Seen); FINE GRANULAR CASTS,URINE None Seen /LPF (None Seen); HYALINE CASTS, URINE None Seen /LPF (None Seen); MUCUS,URINE None Seen /LPF (None Seen); OTHER CASTS, URINE None Seen /LPF (None Seen); OTHER CRYSTALS,URINE None Seen /HPF (None Seen); TRICHOMONAS,URINE None Seen /HPF (None Seen); TRIPLE PHOSPHATE CRYSTAL,UR None Seen /HPF (None Seen); URIC ACID CRYSTALS,URINE None Seen /HPF (None Seen); URINE AMORPHOUS PHOSPHATES None Seen /HPF (None Seen); URINE AMORPHOUS URATE None Seen /HPF (None Seen); WAXY CASTS,URINE None Seen /LPF (None Seen); YEAST,URINE None Seen /HPF (None Seen)
[2023-05-16 06:56] LABS: CALCIUM 9.3 mg/dL (8.4-11.0); CREATININE 4.34 mg/dL (0.55-1.30); PHOSPHORUS 4.3 mg/dL (2.7-4.5); POTASSIUM 3.9 mmol/L (3.5-5.1)
[2023-05-16 08:00] VITALS: BP_SYST 134; PULSE 86; RESP 17; TEMP 97.2; O2SAT 98
[2023-05-16 08:00] LABS: ERYTHROCYTE SEDIMENTATION RATE 80 MM/HR (0-20)
[2023-05-16] MEDS: NYSTATIN 15 GM TOPICAL POWDER TP SCH ×2 (09:00→21:14)
[2023-05-16] MEDS: MULTIVITAMINS TAB 1 TABLET PO SCH (10:09)
[2023-05-16] MEDS: predniSONE 5 MG TABLET PO SCH (10:09)
[2023-05-16] MEDS: MYCOPHENOLATE 180 MG PO SCH ×2 (10:10→21:14)
[2023-05-16] MEDS: PANTOPRAZOLE SODIUM 40 MG/VIAL (PROTONIX) IVP SCH ×2 (12:45→21:11)
[2023-05-16 17:38] VITALS: BP_SYST 134; PULSE 86; RESP 17; TEMP 97.2
[2023-05-16 20:30] VITALS: BP_SYST 126; PULSE 76; RESP 18; TEMP 97.3; O2SAT 100; O2SAT 98
== END 2023-05-16 22:30 | DRG 871 ==
LOC: SED 06:05 → SIC 09:07 → STU 05-09 23:08 → SMU 05-14 18:10
PROVIDERS: ADMIT Family Medicine; ATTEND Family Medicine
PROC: 02H633Z Insertion of Infusion Device into Right Atrium, Percutaneous Approach (ICD-10-PCS; principal; 2023-05-06)
PROC: B548ZZA Ultrasonography of Superior Vena Cava, Guidance (ICD-10-PCS; 2023-05-06)
PROC: 5A1D70Z Performance of Urinary Filtration, Intermittent, Less than 6 Hours Per Day (ICD-10-PCS; 2023-05-06)
PROC: 5A1D70Z Performance of Urinary Filtration, Intermittent, Less than 6 Hours Per Day (ICD-10-PCS; 2023-05-07)
PROC: 05HY33Z Insertion of Infusion Device into Upper Vein, Percutaneous Approach (ICD-10-PCS; 2023-05-08)
PROC: B54MZZA Ultrasonography of Right Upper Extremity Veins, Guidance (ICD-10-PCS; 2023-05-08)
PROC: 30233N1 Transfusion of Nonautologous Red Blood Cells into Peripheral Vein, Percutaneous Approach (ICD-10-PCS; 2023-05-08)
PROC: 5A1D70Z Performance of Urinary Filtration, Intermittent, Less than 6 Hours Per Day (ICD-10-PCS; 2023-05-10)
PROC: 0DB78ZX Excision of Stomach, Pylorus, Via Natural or Artificial Opening Endoscopic, Diagnostic (ICD-10-PCS; 2023-05-12)
PROC: 5A1D70Z Performance of Urinary Filtration, Intermittent, Less than 6 Hours Per Day (ICD-10-PCS; 2023-05-12)
DX: A41.81 Sepsis due to Enterococcus (principal); E11.10 Type 2 diabetes mellitus with ketoacidosis without coma; E43 Unspecified severe protein-calorie malnutrition; G92.8 Other toxic encephalopathy; J96.21 Acute and chronic respiratory failure with hypoxia; K26.4 Chronic or unspecified duodenal ulcer with hemorrhage; K29.01 Acute gastritis with bleeding; N18.6 End stage renal disease; N17.9 Acute kidney failure, unspecified; Z68.1 Body mass index [BMI] 19.9 or less, adult; E87.1 Hypo-osmolality and hyponatremia; N13.6 Pyonephrosis; T86.19 Other complication of kidney transplant; I12.0 Hypertensive chronic kidney disease with stage 5 chronic kidney disease or end stage renal disease; R65.20 Severe sepsis without septic shock; E86.0 Dehydration; J10.1 Influenza due to other identified influenza virus with other respiratory manifestations; E87.5 Hyperkalemia; D64.9 Anemia, unspecified; E88.09 Other disorders of plasma-protein metabolism, not elsewhere classified; D75.839 Thrombocytosis, unspecified; M81.0 Age-related osteoporosis without current pathological fracture; Y83.8 Other surgical procedures as the cause of abnormal reaction of the patient, or of later complication, without mention of misadventure at the time of the procedure; Z20.822 Contact with and (suspected) exposure to COVID-19; E83.39 Other disorders of phosphorus metabolism; K44.9 Diaphragmatic hernia without obstruction or gangrene; E11.22 Type 2 diabetes mellitus with diabetic chronic kidney disease; E83.42 Hypomagnesemia; Z88.0 Allergy status to penicillin; Z88.2 Allergy status to sulfonamides; Z79.899 Other long term (current) drug therapy; Y92.89 Other specified places as the place of occurrence of the external cause; Z98.2 Presence of cerebrospinal fluid drainage device; Z99.2 Dependence on renal dialysis
CPT/HCPCS: 36415; 36600; 43239; 70450-TC; 71045; 76376; 76700-TC; 76770; 76937; 80048; 80053; 80074; 80076; 81000; 81001; 81015; 82009; 82272; 82803; 82962; 83037; 83605; 83735; 83970; 84100; 84478; 84484; 85007; 85018; 85025; 85027; 85610-TC; 85651-TC; 85730-TC; 86886; 86900; 86901; 86920; 87040; 87081; 87086; 87186-TC; 88305; 88312; 88313; 90935; 90937; 92610-GN; 93005; 97110-GP; 97116-GP; 97163-GP; 97530-GP; 99285; C9113; G0378; J0692; J1200; J1644; J1815; J1940; J2175; J2250; J3475; J3480; J3490; J7060; J7512; J7515; P9021